=== PATIENT | female | born 1985 | race African-American/Black ===

== ENCOUNTER 2022-10-23 20:07 | Emergency (ER) | payer SELFPAY ==
[~2022-10-23] VITALS: Ht 167.6 cm; Wt 70.0 kg
[2022-10-23 20:18] VITALS: BP 131/86; PULSE 93; RESP 18; TEMP 98.3; O2SAT 100
== END 2022-10-23 20:40 | disposition left against medical advice (07) ==
LOC: ER 20:07
DX: Z53.21 Procedure and treatment not carried out due to patient leaving prior to being seen by health care provider (principal)
CPT/HCPCS: 99281